=== PATIENT | male | born 1955 | race African-American/Black ===

== ENCOUNTER 2024-09-20 14:35 | Outpatient (CLI) | payer OTHER, SELFPAY ==
--- NOTE | 2024-09-20 14:30 | MR_ITS ---
EXAM: MRI of the RIGHT SHOULDER, without contrast CLINICAL INFORMATION: Male, 69 years old, with right shoulder pain. INDICATION: Evaluate for rotator cuff tear. PRIOR SURGERY: None reported. PLAIN FILMS: None available. COMPARISONS: No prior MRIs available. TECHNICAL INFORMATION: Using a 1.5T MR scanner and a localizing surface coil: coronal obliques: PD, T2FS sagittal obliques: T2, PDFS axials: PD, PDFS SEDATION: None CONTRAST: None FINDINGS: Bones: Proximal humerus: No fracture or marrow edema/pathology. No humeral Hill-Sachs or reverse Hill-Sachs lesion/impaction or contusion. Glenoid: No fracture or marrow edema/pathology. No osseous Bankart lesion. Rotator cuff and muscles/tendons: Supraspinatus: Moderate supraspinatus tendinopathy with a 2.2 x 1.6 cm area of fmrsuvxwmclg-mzws-[id number] anterior-mid insertional footprint tearing (coronal STIR series 5 image 10 and sagittal T2 series 9 image 8). No tendon retraction or muscle atrophy. Infraspinatus: Mild-moderate infraspinatus tendinopathy with an 8 x 3 x 3 mm region of calcific tendinosis at the tendon insertion (sagittal PD series 8 image 5 and coronal PD series 6 image 18). No tendon tear or muscle atrophy. Teres minor: No tendinopathy, tear or atrophy. Subscapularis: Mild-moderate tendinopathy of the superior distal subscapularis without tendon tear or muscle atrophy. Deltoid: No strain or atrophy. Coracoacromial arch: Acromion morphology: The acromion has type II morphology. No discrete subacromial osseous spur or os acromiale. Acromiohumeral space: The acromiohumeral space is within normal limits. Coracohumeral space: The coracohumeral space is within normal limits. Acromioclavicular joint: Joint: Moderate AC joint arthropathy, with 4 mm of inferior osteophytosis, which effaces the underlying supraspinatus. Ligaments: Coracoclavicular ligaments are intact. Bursae: Subacromial-subdeltoid: Mild subacromial-subdeltoid bursitis. Subcoracoid: No convincing subcoracoid bursal thickening/bursitis. Biceps tendon: The long head of the biceps tendon is present within the bicipital groove. Moderate tendinopathy and fraying of the intra-articular biceps long head tendon (coronal PD series 6 images 9-12) . Glenohumeral joint: Effusion/cyst: No significant glenohumeral joint effusion. Articular cartilage: Humeral head & glenoid: Mild signal heterogeneity, surface irregularity, and thinning of the articular cartilage without full-thickness chondral loss or reactive osseous changes. Loose bodies: No discrete intra-articular body within the joint. Labrum:?Circumferential degeneration and fraying of the labrum, which is of doubtful clinical significance. No paralabral cyst. Inferior glenohumeral ligament/axillary pouch:?Mild-moderate thickening of inferior capsuloligamentous structures of coronal PD series 6 images 14-20). Additionally, there is soft tissue thickening throughout the rotator interval (sagittal PD series 8 images 12-16). IMPRESSION: 1. Moderate supraspinatus tendinopathy with a 2.2 x 1.6 cm area of ssrhvnjotsae-zzgt-loieq anterior-mid insertional footprint tearing. 2. Mild-moderate infraspinatus tendinopathy with an 8 x 3 x 3 mm region of calcific tendinosis at the tendon insertion. There is also mild/moderate subscapularis tendinopathy, without tear. 3. Moderate tendinopathy and fraying of the intra-articular biceps long head tendon. 4. Moderate AC joint arthropathy with inferior osteophytosis that effaces the underlying supraspinatus. Additionally, there is mild subacromial subdeltoid bursitis. However, the acromiohumeral space is normal. 5. Findings in keeping with adhesive capsulitis. 6. Circumferential degeneration and fraying of the labrum, which is of doubtful clinical significance. 7. No full-thickness chondral defect or evidence of glenohumeral joint osteoarthritis. BC Electronically signed on 09/21/2024 8:27:00 AM by Abner Vasques M.D.
== END 2024-09-20 14:36 | disposition home or self-care (01) ==
LOC: MRI 14:36
PROVIDERS: PCP Surgery; Visit Provider Physician Assistant Surgical
DX: M25.511 Pain in right shoulder (principal); M75.101 Unspecified rotator cuff tear or rupture of right shoulder, not specified as traumatic; M25.711 Osteophyte, right shoulder; M75.51 Bursitis of right shoulder; M75.01 Adhesive capsulitis of right shoulder; M79.601 Pain in right arm
CPT/HCPCS: 73221

== ENCOUNTER 2024-11-11 14:30 | Outpatient (RCR) | payer OTHER, SELFPAY ==
--- NOTE | 2024-11-04 16:02 | PT.OPEX ---
PT Sarah Outpatient Eval PT [facility] Outpatient Eval Start: 11/04/24 09:41 Freq: Status: Active Protocol: Document 11/04/24 09:41 YAIR (Rec: 11/04/24 16:01 YAIR [id number]) E-signed By Haley Westbrook PT Physical Therapy Outpatient Evaluation Insurance Information Insurance Name [employer] Medical Diagnosis (1) Tendinopathy of right rotator cuff: (2) Tendinitis of long head of biceps: (3) Arthrosis of right acromioclavicular joint: (4) Bursitis of shoulder, right: Treating Diagnosis RIGHT SHOULDER PAIN RIGHT SHOULDER STIFFNESS RIGHT SHOULDER WEAKNESS Imaging Report 09/20/24 MRI: Information IMPRESSION: 1. Moderate supraspinatus tendinopathy with a 2.2 x 1.6 cm area of tkkxwditrbco-sjvg-xlabd anterior-mid insertional footprint tearing. 2. Mild-moderate infraspinatus tendinopathy with an 8 x 3 x 3 mm region of calcific tendinosis at the tendon insertion. There is also mild/moderate subscapularis tendinopathy, without tear. 3. Moderate tendinopathy and fraying of the intra- articular biceps long head tendon. 4. Moderate AC joint arthropathy with inferior osteophytosis that effaces the underlying supraspinatus . Additionally, there is mild subacromial subdeltoid bursitis. However, the acromiohumeral space is normal. 5. Findings in keeping with adhesive capsulitis. 6. Circumferential degeneration and fraying of the labrum, which is of doubtful clinical significance. 7. No full-thickness chondral defect or evidence of glenohumeral joint osteoarthritis. Subjective Preferred Name CAITLYN Greer PATIENT DESCRIBES INJURING HIS SHOULDER 08/24/24 WHERE HE REPEATEDLY LIFTED MILK SACKS THAT GO INTO MACHINES AT [facility] OVERHEAD TO PUT ON SHELVES AND RETRIEVED THEM FROM SAME HEIGHT ALONG WITH MOVING FULL CONTAINERS IN [place] TO REACH THE CONTAINERS. HE HAS USED PO OTC, ICE, AND REST WITH SIGNIFICANT IMPROVEMENT BUT CONTINUED PAIN WITH REACHING OUT TO SIDE, OVERHEAD AND BEHIND BACK. HE IS OFF FOR THE SUMMER AND WANTS TO IMPROVE THE FUNCTION OF HIS SHOULDER TO WHERE IT HAD BEEN PRE-INJURY. 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 TORRES/CHAN Bruce PA-C TO EVAL AND TREAT RIGHT RTC TEAR . PATIENT DEMONSTRATES SIGNS AND SYMPTOMS CONSISTENT WITH RIGHT RTC TEAR CONTRIBUTING TO THEIR FUNCTIONAL IMPAIRMENTS OF DIFFICULTY WITH REACHING, CARRYING,AND LIFTING. PATIENT DESCRIBES THE FOLLOWING TRIGGERS REACHING OUT TO SIDE, >90 AND BEHIND BACK WHICH ARE ALLEVIATED BY REST AND PO OTC . PATIENT HAS NOTABLE OBJECTIVE FINDING INCLUDING AROM 150/112/68/L2 @O ABD, MMT 4+/5 ER, 4+/5 IR, SHOULDER FLEX/ABD 45; (+) SPEEDS, TSE-TELMA, OBRIENS WITH POINT TENDERNESS ABOUT THE ANTERIOR SHOULDER, BICIPITAL GROVE AND PROXIMAL LATERAL HUMERUS WHICH ALL ARE CONTRIBUTING TO THE CLINICAL IMPRESSION. PATIENT IS A GOOD CANDIDATE FOR SKILLED PHYSICAL THERAPY TO ADDRESS AFOREMENTIONED DEFICITS ABOVE IN ORDER TO RETURN TO POSITION WITH FOOD SERVICES AT [facility] WITH MIN ADAPTATIONS. . INTERVENTION IS NECESSARY BY WAY OF THERAPEUTIC EXERCISE, MANUAL THERAPY, NEUROMUSCULAR RE-EDUCATION, STABILIZATION/ PROPRIOCEPTION, MODALITIES FOR SYMPTOM MGMT, PATIENT EDUCATION, DRY NEEDLING PLEASE REFER TO APPROPRIATE SECTION WITHIN THIS EVALUATION FOR COMPLETE LIST OF GOALS AND PLAN OF CARE. DISCHARGE PLAN AND CRITERIA IS FOR PATIENT TO ACHIEVE THE GOALS LISTED BELOW OR UNTIL MAX POTENTIAL MET. PATIENT VERBALIZED UNDERSTANDING AND AGREEABLE TO POC, FREQ, AND GOALS ESTABLISHED. Primary Functional REACHING >90, OUT TO SIDE, BEHIND BACK Limitations Plan of Care Rehabilitation Fair Potential Physical Therapy IN 6-10 VISITS: Goals 1. DECREASE SHOULDER PAIN TO </2-3/10 WITH DAILY ACTIVITIES AND WITH THE PROGRESSION OF HIS HEP OVER THE NEXT 4 WEEKS. 2. DEMONSTRATE PAIN FREE AROM OVER THE NEXT 4-6 WEEKS DURING DAILY ACTIVITIES WITHOUT FLARE UPS OF SYMPTOMS. 3. PATIENT WILL VERBALIZED UNDERSTANDING OF POSTURING AND BODY MECHANICS IT RELATES TO DECREASING STRESS, IMPROVED SHOULDER MECHANICS, AND DECREASED SYMPTOMS. 4.PATIENT WILL DEMONSTRATES IMPROVED STRENGTH TO FACILITATE RETURN TO DAILY ACTIVITIES WITH LESS SYMPTOMS AND DECREASED OPPORTUNITIES FOR FLARE UP OF PAIN 5. PATIENT WILL BE INDEPENDENT WITH HIS INDIVIDUALIZED AND COMPREHENSIVE HEP WITHIN THE NEXT 6-8 WEEKS FOR PROGRESSION TWD ABOVE MENTION GOALS, CONTINUED MGMT OF SYMPTOMS, AND ONGOING SELF IMPROVEMENTS IN POSTURING/ STRENGTH/STABILIZATION. Treatment Plan/ Dry Needling,Ice/Cold/Vasopneumatic,Joint Mobilization, Direct Interventions Manual Therapy,Self-Care/Home Management,Therapeutic Activities,Therapeutic Exercises Frequency/Duration 1-2X/WK Patient Will Be Independent w/HEP,Independently Progressing Discharged From Therapy Evaluation Billing Untimed Code 20 Treatment Minutes PT Eval No Charge No Complexity Moderate Certification Information Provider Signature Communication Only-No Signature Required Required
== END 2024-12-21 14:53 | disposition home or self-care (01) ==
PROVIDERS: PCP Surgery; Visit Provider Physician Assistant Surgical
DX: M75.101 Unspecified rotator cuff tear or rupture of right shoulder, not specified as traumatic (principal); M75.21 Bicipital tendinitis, right shoulder; M75.51 Bursitis of right shoulder; M19.011 Primary osteoarthritis, right shoulder; Z51.89 Encounter for other specified aftercare
CPT/HCPCS: 97110; 97162